=== PATIENT | female | born 1940 | race Caucasian/White ===

== ENCOUNTER 2016-06-20 02:55 | Emergency (ER) | payer OTHER, MEDICARE ==
[~2016-06-20] VITALS: Ht 165.1 cm; Wt 77.1 kg
[~2016-06-20 02:55] MED LIST: ASPIRIN EC325 M2 PO; ATIVAN0.5 M1 PO; CILOXAN 0.50 GTT/1 B OPH; CYMBALTA60 M1 PO; CYMBALTA60 MG PO; DULCOLAX5 MG PR; DUONEB 3 MG/3 ML3 ML INH/SOL; ECOTRIN325 MG PO; FLEET ENEMA133 ML RC; GAS-X80 MG PO; GLUCOSE PO; HUMALOG 100U100 U/ML SC; LEADER NIC14 MG/24 H TD; LEVEMIR FL100 UNIT/1 SC; LOPRESSOR50 M1 PO; LOPRESSOR50 MG PO; MAPAP325 MG PO; MILK OF MA400 MG/52 PO; MIRTAZAPINE15 M2 PO; MULTIVITAMIN1 TAB PO; NICODERM C7 MG/24 HR TOP; NORVASC5 M1 PO; NOVOLOG100 UNIT/2 SC; OMEPRAZOLE40 M1 PO; OXYCODONE HCL E10 MG PO; OXYCODONE HCL10 M1 PO; OXYCODONE HCL5 M1 PO; OXYCODONE5 MG PO; PERCOCET 325 MG1 TA2 PO; PERCOCET 325 MG1 TAB PO; SENNA8.6 M1 PO; SERTRALINE HYDR25 MG PO; TRANDATE100 MG PO; TYLENOL XSTR500 MG PO; TYLENOL325 M1 PO; ZITHROMAX Z PA250 MG PO; ZOCOR 40MG TAB40 MG PO
--- NOTE | 2016-06-20 03:11 | ED GENERAL ADULT ---
History of Present Illness General Chief Complaint: Syncope and Near-Syncope Stated Complaint: BIBA NEAR SYNCOPE Source: patient, old records, EMS, W10 Exam Limitations: no limitations Vital Signs & Intake/Output Vital Signs & Intake/Output Vital Signs Date Time Temp Pulse Resp B/P Pulse O2 O2 Flow FiO2 Ox Delivery Rate 06/20 822 97.8 58 18 193/85 94 06/20 300 97.6 59 18 192/81 95 Nasal 2.0L Cannula 06/20 299 95 Nasal 4.0L Cannula Allergies Coded Allergies: zolpidem (From AMBIEN) (PUTS HER IN THE OUTER ZONE PER PT 11/22/15) Triage Note: PT BIBDavid FROM [facility] C/O FALL. PER EMS PT STATES "I DIDNT FALL I WAS IN THE BATHROOM BRUSHING MY TEETH AND I FEEL WEAK ON MY LEFT SIDE OF UPPER LEG AND BACK SO I LOWER MYSELF TO THE GROUND" PER EMS BS 230 ON ARRIVAL, NO COMPLAINTS OR PAIN ON ARRIVAL. AWAITING PROVIDER. Triage Nurses Notes Reviewed? yes HPI: Patient was in the bathroom impression acute she suddenly felt lightheaded and like she was coming to pass out. Patient sat on the floor and called the nurse. Patient denies any chest pain or palpitations. Patient states she's feels better when she is sitting and laying down. There's been no nausea vomiting. Patient denies any diarrhea. Patient denies any blood in her stool. There's no abdominal pain. (CABRERA DA SILVA,KATEY Fabian) Reconcile Medications Acetaminophen 500 MG TABLET 1 TAB PO TID PAIN (Reported) Albuterol Sulfate/Ipratropiu (Duoneb) 3 MG/3 ML NEB 1 Vial INH/STELLA Q4 HRS NEEDED PRN SHORTNESS OF BREATH (Reported) Amlodipine Besylate (Norvasc) 5 MG TABLET 1 TAB PO DAILY blood pressure Aspirin (Ecotrin*) 325 MG TABLET.DR 325 MG PO DAILY heart Bisacodyl (Dulcolax) 5 MG ECT 10 MG AR DAILY PRN CONSTIPATION (Reported) Brimonidine Tartrate (Alphagan P) 0.1 % DROPS 1 GTT OPH BID EYE (Reported) Bupropion HCl (Bupropion XL) 300 MG TAB.ER.24H 1 TAB PO QAM MENTAL HEALTH ( Reported) Dextrose (Glucose) 4 GM TAB.CHEW 1 TAB PO Q4 PRN GLUCOSE < 70 (Reported) Reason to Stop at ADM: NOT NEEDED Docusate Sodium (Colace) 100 MG CAPSULE 1 CAP PO BID GI (Reported) Duloxetine HCl (Cymbalta) 60 MG CAPSULE.DR 90 MG PO DAILY DAILY Gabapentin 100 MG CAPSULE 2 CAP PO QPM UNKNOWN (Reported) Insulin Aspart (Novolog) 100 UNIT/1 ML VIAL 0 SC SEE dibetes (Reported) Insulin Detemir (Levemir Flextouch) 100 UNIT/ML (3 ML) INSULN.PEN 26 U SC DAILY DIABETES (Reported) Insulin Detemir (Levemir Flextouch) 100 UNIT/ML (3 ML) INSULN.PEN 20 U SC QPM DIABETES (Reported) Labetalol HCl 100 MG TABLET 1 TAB PO BID HEART (Reported) Latanoprost 0.005 % DROPS 1 GTT OPH QPM EYE (Reported) Lisinopril 10 MG TABLET 1 TAB PO DAILY HEART (Reported) Lorazepam (Ativan) 0.5 MG TABLET 1 TAB PO BIDP PRN ANXIETY (Reported) Reason to Stop at ADM: SOMNOLENT, POSSIBLE STROKE Mirtazapine 15 MG TABLET 7.5 MG PO QPM SLEEP Reason to Stop at ADM: HOLDING FOR AMS Multivitamin (Multiple Vitamins) 1 TAB TAB 1 TAB PO DAILY SUPPLEMENT ( Reported) Omeprazole 40 MG CAPSULE.DR 1 CAP PO DAILY GI (Reported) Polyvinyl Alcohol (Artificial Tears) 1.4 % DROPS 2 DROP OPH BID EYE (Reported ) Sennosides (Senna) 8.6 MG TAB 2 TAB PO DAILY CONSTIPATION (Reported) Simethicone (Gas-X) 80 MG CTB 1 TAB PO Q4 HRS NEEDED PRN GAS (Reported) Simvastatin (Zocor 40MG Tab) 40 MG TAB 1 TAB PO QPM CHOLESTEROL (Reported) Trazodone HCl 150 MG TABLET 0.5 TAB PO QPM SLEEP (Reported) (MARLENI DA SILVA,CRISPIN) Past History Travel History Traveled to [place] past 21 day No Medical History Any Pertinent Medical History? see below for history Neurological: subdural hematoma EENT: glaucoma, macular degeneration, DETACHED RETINA Cardiovascular: hypertension, hyperlipidemia Respiratory: COPD Gastrointestinal: constipation, GERD, pancreatitis Hepatic: TYLENOL OVERDOSE Renal: NONE Musculoskeletal: osteoarthritis Psychiatric: depression Endocrine: diabetes Blood Disorders: NONE Cancer(s): NONE MEETING/EVENT PLANNER/Reproductive: NONE History of MRSA: No History of VRE: No History of CDIFF: No Pneumonia Vaccine: 08/19/15 Surgical History Surgical History: hysterectomy, PARTIAL COLON REMOVAL Psychosocial History Who do you live with W10 What is your primary language Belarusian Tobacco Use: Never used ETOH Use: denies use Illicit Drug Use: denies illicit drug use Family History Family History, If Any: FATHER (pud, S/ GASTRECTOMY). Hx Contributory? No (CABRERA DA SILVA,KATEY Fabian) Review of Systems Review of Systems Constitutional: Reports: no symptoms. EENTM: Reports: no symptoms. Respiratory: Reports: no symptoms. Cardiovascular: Reports: no symptoms. GI: Reports: no symptoms. Genitourinary: Reports: no symptoms. Musculoskeletal: Reports: no symptoms. Skin: Reports: no symptoms. Neurological/Psychological: Reports: see HPI. Hematologic/Endocrine: Reports: no symptoms. Immunologic/Allergic: Reports: no symptoms. All Other Systems: Reviewed and Negative (CABRERA DA SILVA,KATEY Fabian) Physical Exam Physical Exam General Appearance: well developed/nourished, alert, awake, anxious, mild distress Head: atraumatic, normal appearance Eyes: Bilateral: PERRL, EOMI. Ears, Nose, Throat: normal pharynx, normal ENT inspection, hearing grossly normal Neck: normal inspection, supple, full range of motion Respiratory: normal breath sounds, chest non-tender, no respiratory distress, lungs clear Cardiovascular: regular rate/rhythm, normal peripheral pulses Gastrointestinal: normal bowel sounds, soft, non-tender, no organomegaly Back: normal inspection, normal range of motion Extremities: normal inspection, normal capillary refill, normal range of motion, no edema Neurologic/Psych: no motor/sensory deficits, awake, alert, oriented x 3, normal gait, normal mood/affect Skin: intact, normal color, warm/dry Lymphatic: no anterior cervical abraham Core Measures ACS in differential dx? Yes ASA ordered for poss ACS? No-ACS ruled out CVA/TIA Diagnosis: No Severe Sepsis Present: No Septic Shock Present: No (CABRERA DA SILVA,KATEY Fabian) Progress Differential Diagnoses I considered the following diagnoses in my evaluation of the patient: [AMI, electrolyte abnormality, anemia, vasovagal syncope, orthostatic syncope] Plan of Care: Orders Procedure Date/time Status Consistent Carbohydrate 1 06/20 L Active TROPONIN LEVEL 06/20 0930 Complete EKG 06/20 0930 Active MISTAKE 01/04 0311 Active Telemetry/[employer] 06/20 310 Active TROPONIN LEVEL 06/20 310 Complete COMPREHENSIVE METABOLIC PANEL 06/20 310 Complete CBC WITHOUT DIFFERENTIAL 06/20 310 Complete EKG 06/20 310 Active Laboratory Tests 06/20/16 0930: Troponin I < 0.01 06/20/16 0525: Anion Gap 10, Estimated GFR > 60, BUN/Creatinine Ratio 17.5, Glucose 156 H, Calcium 9.0, Total Bilirubin 0.3, AST 17, ALT 18, Alkaline Phosphatase 68, Troponin I < 0.01, Total Protein 6.1 L, Albumin 3.3 L, Globulin 2.8, Albumin/ Globulin Ratio 1.2 06/20/16 0405: CBC w Diff NO MAN DIFF REQ, RBC 4.45, MCV 85.7, MCH 28.5, RDW 13.9, MPV 8.1, Gran % 72.1, Lymphocytes % 18.0 L, Monocytes % 7.5, Eosinophils % 2.3, Basophils % 0.1, Absolute Granulocytes 6.3, Absolute Lymphocytes 1.6, Absolute Monocytes 0.7 H, Absolute Eosinophils 0.2, Absolute Basophils 0, PUBS MCHC 33.3 7:18 AM Patient signed out to me by Dr. Rees. Pending repeat troponin/ekg at 9:30 am. 06/20/2016 10:24:24 AM Second troponin also negative. EKG is unchanged. Patient tolerated breakfast without any difficulty. She will be transported back to the [facility] AT [facility] at this time. (CRISPIN YEPEZ MD) Initial ED EKG: NSR, nonspecific ST T wave chg Prior EKG: unchanged Rhythm Strip: normal sinus rhythm Hand-Off Endorsed To: CRISPIN YEPEZ MD Endorsed Time: 0700 Pending: labs (REPEAT TROP) Comments: Patient felt lightheaded with standing. (KATEY REES MD) Differential Diagnoses I considered the following diagnoses in my evaluation of the patient: Repeat EKG: unchanged (CRISPIN YEPEZ MD) Departure Departure Condition: Stable Clinical Impression Primary Impression: Near syncope Referrals: SHANKAR ABAD MD (PCP/Family) Departure Forms: Customer Survey General Discharge Information (KATEY REES MD) Departure Time of Disposition: 1024 Disposition: ACUTE REHAB FACILITY (CRISPIN YEPEZ MD) Critical Care Note Critical Care Note Critical Care Time: non-applicable (CABRERA DA SILVA,KATEY Fabian)
[2016-06-20 04:26] LABS: ABSOLUTE BASOPHIL COUNT 0 /CUMM (0.0-0.2); ABSOLUTE EOSINOPHIL COUNT 0.2 /CUMM (0.0-0.7); ABSOLUTE GRANULOCYTE CT 6.3 /CUMM (1.4-6.5); ABSOLUTE LYMPH COUNT 1.6 /CUMM (1.2-3.4); ABSOLUTE MONOCYTE COUNT 0.7 /CUMM (0.10-0.60); BASOPHIL % 0.1 % (0.0-2.0); EOSINOPHIL % 2.3 % (0-5); GRANULOCYTE % 72.1 % (42.2-75.2); HEMATOCRIT 38.1 % (37-47); MEAN CORPUSCULAR HGB 28.5 PG (27.0-31.0); MEAN CORPUSCULAR HGB CONC 33.3 G/DL (33.0-37.0); MEAN CORPUSCULAR VOLUME 85.7 FL (81.0-99.0); MEAN PLATELET VOLUME 8.1 FL (7.4-10.4); PLATELET COUNT 231 /CUMM (130-400); RBC DISTRIBUTION WIDTH 13.9 % (11.5-14.5); RED BLOOD CELL CT 4.45 /CUMM (4.20-5.40); WHITE BLOOD CELL COUNT 8.8 /CUMM (4.8-10.8)
[2016-06-20] MEDS ORDERED: LISINOPRIL10 M1 PO (07:55)
[2016-06-20] MEDS ORDERED: BUPROPION XL300 M1 PO (07:57)
[2016-06-20] MEDS ORDERED: ACETAMINOPHEN500 M4 PO (07:58)
[2016-06-20] MEDS ORDERED: ARTIFICIAL TEAR15 M8 OPH (08:00)
[2016-06-20] MEDS ORDERED: LABETALOL HCL100 M1 PO (08:00)
[2016-06-20] MEDS ORDERED: COLACE100 M1 PO (08:01)
[2016-06-20] MEDS ORDERED: ALPHAGAN P5 M1 OPH (08:02)
[2016-06-20] MEDS ORDERED: LATANOPROST2.5 ML OPH (08:02)
[2016-06-20] MEDS ORDERED: LEVEMIR FL100 UNIT/1 SC (08:03)
[2016-06-20] MEDS ORDERED: GABAPENTIN100 M2 PO (08:04)
[2016-06-20] MEDS ORDERED: TRAZODONE HCL150 M1 PO (08:04)
[2016-06-20 10:29] VITALS: BP 190/76
== END 2016-06-20 11:10 ==
LOC: ERH 02:55
PROVIDERS: Emergency Medicine
DX: R55 Syncope and collapse (principal); I10 Essential (primary) hypertension
CPT/HCPCS: 93005; 93010; 96360

== ENCOUNTER 2017-11-28 23:55 | Emergency (ER) | payer OTHER, MEDICARE ==
[~2017-11-28 23:55] MED LIST changes: +ACETAMINOPHEN500 M4 PO; +ALPHAGAN P5 M1 OPH; +ARTIFICIAL TEAR15 M8 OPH; +BUPROPION XL300 M1 PO; +COLACE100 M1 PO; +GABAPENTIN100 M2 PO; +LABETALOL HCL100 M1 PO; +LATANOPROST2.5 ML OPH; +LISINOPRIL10 M1 PO; +TRAZODONE HCL150 M1 PO
--- NOTE | 2017-11-29 00:51 | ED GENERAL ADULT ---
History of Present Illness General Chief Complaint: General Adult Stated Complaint: BIBA HYPOGLYCEMIA Source: patient, old records, EMS Exam Limitations: poor historian Vital Signs & Intake/Output Vital Signs & Intake/Output Vital Signs Date Time Temp Pulse Resp B/P B/P Pulse O2 O2 Flow FiO2 Mean Ox Delivery Rate 11/29 0141 141/78 11/29 0002 96.4 58 18 187/85 95 Room Air Allergies Coded Allergies: zolpidem (From JULIO) (PUTS HER IN THE OUTER ZONE PER PT 11/22/15) Reconcile Medications Acetaminophen 500 MG TABLET 1 TAB PO TID PAIN (Reported) Albuterol Sulfate/Ipratropiu (Duoneb) 3 MG/3 ML NEB 1 Vial INH/STELLA Q4 HRS NEEDED PRN SHORTNESS OF BREATH (Reported) Amlodipine Besylate (Norvasc) 5 MG TABLET 1 TAB PO DAILY blood pressure Aspirin (Ecotrin*) 325 MG TABLET.DR 325 MG PO DAILY heart Bisacodyl (Dulcolax) 5 MG ECT 10 MG AR DAILY PRN CONSTIPATION (Reported) Brimonidine Tartrate (Alphagan P) 0.1 % DROPS 1 GTT OPH BID EYE (Reported) Bupropion HCl (Bupropion XL) 300 MG TAB.ER.24H 1 TAB PO QAM MENTAL HEALTH ( Reported) Dextrose (Glucose) 4 GM TAB.CHEW 1 TAB PO Q4 PRN GLUCOSE < 70 (Reported) Reason to Stop at ADM: NOT NEEDED Docusate Sodium (Colace) 100 MG CAPSULE 1 CAP PO BID GI (Reported) Duloxetine HCl (Cymbalta) 60 MG CAPSULE.DR 90 MG PO DAILY DAILY Gabapentin 100 MG CAPSULE 2 CAP PO QPM UNKNOWN (Reported) Insulin Aspart (Novolog) 100 UNIT/1 ML VIAL 0 SC SEE dibetes (Reported) Insulin Detemir (Levemir Flextouch) 100 UNIT/ML (3 ML) INSULN.PEN 26 U SC DAILY DIABETES (Reported) Insulin Detemir (Levemir Flextouch) 100 UNIT/ML (3 ML) INSULN.PEN 20 U SC QPM DIABETES (Reported) Labetalol HCl 100 MG TABLET 1 TAB PO BID HEART (Reported) Latanoprost 0.005 % DROPS 1 GTT OPH QPM EYE (Reported) Lisinopril 10 MG TABLET 1 TAB PO DAILY HEART (Reported) Lorazepam (Ativan) 0.5 MG TABLET 1 TAB PO BIDP PRN ANXIETY (Reported) Reason to Stop at ADM: SOMNOLENT, POSSIBLE STROKE Mirtazapine 15 MG TABLET 7.5 MG PO QPM SLEEP Reason to Stop at ADM: HOLDING FOR AMS Multivitamin (Multiple Vitamins) 1 TAB TAB 1 TAB PO DAILY SUPPLEMENT ( Reported) Omeprazole 40 MG CAPSULE.DR 1 CAP PO DAILY GI (Reported) Polyvinyl Alcohol (Artificial Tears) 1.4 % DROPS 2 DROP OPH BID EYE (Reported ) Sennosides (Senna) 8.6 MG TAB 2 TAB PO DAILY CONSTIPATION (Reported) Simethicone (Gas-X) 80 MG CTB 1 TAB PO Q4 HRS NEEDED PRN GAS (Reported) Simvastatin (Zocor 40MG Tab) 40 MG TAB 1 TAB PO QPM CHOLESTEROL (Reported) Trazodone HCl 150 MG TABLET 0.5 TAB PO QPM SLEEP (Reported) Triage Note: TRIAGE: BIBA FROM [facility] FOR HYPOGLYCEMIA OF 40, GIVEN GLUCAGON BY EMS AND FINGERSTICK INCREASED TO 97 PER EMS. PATIENT DENIES COMPLAINTS. Triage Nurses Notes Reviewed? yes HPI: Patient presents for evaluation of low blood sugar and elevated blood pressure at her extended care facility. Patient received glucagon prehospital with improvement in blood sugar level. Upon presentation to the emergency department the patient complains of feeling very weak and headachy. Patient states she has almost no recall of what occurred prior to arrival. Past History Travel History Traveled to [place] past 21 day No Medical History Any Pertinent Medical History? see below for history Neurological: subdural hematoma EENT: glaucoma, macular degeneration, DETACHED RETINA Cardiovascular: hypertension, hyperlipidemia Respiratory: COPD Gastrointestinal: constipation, GERD, pancreatitis Hepatic: TYLENOL OVERDOSE Renal: NONE Musculoskeletal: osteoarthritis Psychiatric: depression Endocrine: diabetes Blood Disorders: NONE Cancer(s): NONE HARVEST CREW SUPERVISOR/Reproductive: NONE History of MRSA: No History of VRE: No History of CDIFF: No Surgical History Surgical History: hysterectomy, PARTIAL COLON REMOVAL Psychosocial History Who do you live with W10 What is your primary language Welsh Tobacco Use: Never used Family History Family History, If Any: FATHER (pud, S/ GASTRECTOMY). Hx Contributory? No Review of Systems Review of Systems Constitutional: Reports: see HPI. EENTM: Reports: no symptoms. Respiratory: Reports: no symptoms. Cardiovascular: Reports: no symptoms. GI: Reports: no symptoms. Genitourinary: Reports: no symptoms. Musculoskeletal: Reports: no symptoms. Skin: Reports: no symptoms. Neurological/Psychological: Reports: headache. Hematologic/Endocrine: Reports: no symptoms. Immunologic/Allergic: Reports: no symptoms. All Other Systems: Reviewed and Negative Physical Exam Physical Exam General Appearance: see below Comments: Gen.: Well-nourished, well-developed, no acute respiratory distress. Somnolent but easily arousable. Head: Normocephalic, atraumatic. Eyes: Normal inspection bilaterally Ears: Normal inspection bilaterally Nose: Normal inspection Throat/mouth : Moist mucosa Neck: Supple, full range of motion, no goiter Heart: Regular rate and rhythm, no murmurs rubs or gallops Lungs: Clear to auscultation bilaterally with normal air entry Chest: Nontender Back: Normal range of motion Abdomen: Soft, nontender, nondistended, normal bowel sounds Extremities: Normal range of motion grossly, equal radial pulses, no cyanosis clubbing or edema Neurologic: Cranial nerves grossly intact, speech is clear Skin: warm and dry Psychiatric: Calm, cooperative, no apparent delusions or hallucinations Core Measures ACS in differential dx? No CVA/TIA Diagnosis: No Sepsis Present: No Sepsis Focused Exam Completed? No Progress Differential Diagnoses I considered the following diagnoses in my evaluation of the patient: Hypoglycemia, medication overdose, decreased PO intake Plan of Care: Orders Procedure Date/time Status Vital Signs 11/29 0205 Active FingerStick- Glucose 11/29 0048 Active Initial ED EKG: none Comments: 11/29/2017 3:23:23 AM patient's blood sugar has remained stable here in the emergency department. She is tolerating liquids. I feel she is stable for return to her extended care facility. 11/29/2017 3:41:41 AM finger stick blood glucose 84 at discharge. Departure Departure Disposition: HOME OR SELF CARE Condition: Stable Clinical Impression Primary Impression: Hypoglycemia Referrals: Jhoan Cruz MD (PCP/Family) Additional Instructions: SEE W10 Departure Forms: Customer Survey General Discharge Information Critical Care Note Critical Care Note Critical Care Time: non-applicable
[2017-11-29 03:20] VITALS: BP 134/76
== END 2017-11-29 03:45 ==
LOC: ERH 23:55
DX: E11.65 Type 2 diabetes mellitus with hyperglycemia (principal); Z79.4 Long term (current) use of insulin